=== PATIENT | female | born 1935 | race Caucasian/White ===

== ENCOUNTER 2016-12-30 06:40 | Day surgery (SDC) | payer MEDICARE, BC ==
[2016-12-30] VITALS (8 sets, daily range): BP systolic 90–118; BP diastolic 43–74; PULSE 55–62; TEMP 97–97.5
[~2016-12-30] VITALS: Ht 170.2 cm; Wt 91.0 kg
[2016-12-30 07:22] LABS: BASO # 0.1 (0.0-0.2); BASO % 1.2 % (0.0-2.0); EOS # 0.2 (0.0-0.7); EOS % 1.3 % (0-4.0); GRAN # 8.2 (1.4-6.5); GRAN % 67.6 % (42.2-75.2); HEMATOCRIT 41.8 % (37.0-47.0); HEMOGLOBIN 13.9 g/dl (12.5-16.0); LYMPH # 2.7 (1.2-3.4); LYMPH % 22.3 % (20.0-51.0); MEAN CELL VOLUME 91 fl (80.0-100.0); MEAN CORPUSCULAR HEMOGLOBIN 30 pg (27.0-31.0); MEAN CORPUSCULAR HGB CONC 33 g/dl (33.0-37.0); MEAN PLATELET VOLUME 9.4 fl (7.4-10.4); MONO # 0.9 (0.1-0.6); MONO % 7.1 % (1.7-9.3); PLATELET COUNT 353 K/mm3 (130-400); RED BLOOD COUNT 4.62 M/mm3 (4.10-5.30); REDCELL DISTRIBUTION WIDTH-CV 13.2 % (11.5-14.5); WHITE BLOOD COUNT 12.2 K/mm3 (4.8-10.8)
[2016-12-30] MEDS ORDERED: CO Q-1010 M1 PO (08:19)
[2016-12-30] MEDS ORDERED: NORCO 325 MG-51 TAB PO (08:20)
[2016-12-30] MEDS ORDERED: CHONDROITIN/GLU1 SGL PO (08:20)
[2016-12-30] MEDS ORDERED: CRESTOR20 MG PO (08:20)
[2016-12-30] MEDS ORDERED: LEXAPRO 10MG10 MG PO (08:21)
[2016-12-30] MEDS ORDERED: LASIX 40MG TABL40 MG PO (08:21)
[2016-12-30] MEDS ORDERED: ANTI-DIARRHEAL2 MG PO (08:22)
[2016-12-30] MEDS ORDERED: GLUCOPHAGE1000 MG PO (08:23)
[2016-12-30] MEDS ORDERED: HYZAAR 12.5 MG-1 TAB PO (08:23)
[2016-12-30] MEDS ORDERED: NIZORAL SHAMPO120 M1 TP (08:24)
[2016-12-30] MEDS ORDERED: DITROPAN 5MG TAB5 MG PO (08:25)
[2016-12-30] MEDS ORDERED: MYCOSTATIN100000 U/G TP (08:25)
[2016-12-30] MEDS ORDERED: K-TAB10 PO (08:26)
[2016-12-30] MEDS ORDERED: PROCARDIA XL 6060 MG PO (08:26)
[2016-12-30] MEDS ORDERED: LEADER NATUR1000 MCG PO (08:27)
[2016-12-30] MEDS ORDERED: TOPROL XL 25MG25 MG PO (08:27)
[2016-12-30] MEDS ORDERED: AMARYL 2MG T2 MG/TAB PO (08:28)
[2016-12-30] MEDS ORDERED: CIPRO 500MG TA500 MG PO (10:53)
== END 2016-12-30 13:15 | disposition home or self-care (01) ==
LOC: SDCO 06:40
PROVIDERS: Urology
DX: N20.0 Calculus of kidney (principal); E11.9 Type 2 diabetes mellitus without complications; Z79.84 Long term (current) use of oral hypoglycemic drugs; I10 Essential (primary) hypertension; E87.6 Hypokalemia; Z85.038 Personal history of other malignant neoplasm of large intestine
CPT/HCPCS: C1769; C1894; C2617; J0690; J1100; J1940; J2405; J2704; J3010; J7030; Q9967

== ENCOUNTER 2021-09-04 11:06 | Day surgery (SDC) | payer MEDICARE, BC ==
[~2021-09-04] VITALS: Ht 170.2 cm; Wt 98.0 kg
[~2021-09-04 11:06] MED LIST: AMARYL 2MG T2 MG/TAB PO; ANTI-DIARRHEAL2 MG PO; CHONDROITIN/GLU1 SGL PO; CIPRO 500MG TA500 MG PO; CO Q-1010 M1 PO; CRESTOR20 MG PO; DITROPAN 5MG TAB5 MG PO; GLUCOPHAGE1000 MG PO; HYZAAR 12.5 MG-1 TAB PO; K-TAB10 PO; LASIX 40MG TABL40 MG PO; LEADER NATUR1000 MCG PO; LEXAPRO 10MG10 MG PO; MYCOSTATIN100000 U/G TP; NIZORAL SHAMPO120 M1 TP; NORCO 325 MG-51 TAB PO; PROCARDIA XL 6060 MG PO; TOPROL XL 25MG25 MG PO
[2021-09-04] MEDS ORDERED: COZAAR100 MG PO (12:01)
[2021-09-04] MEDS ORDERED: TOPROL XL 50MG50 MG PO (12:01)
[2021-09-04] MEDS ORDERED: MASON NATURAL2000 IU PO (12:02)
[2021-09-04] MEDS ORDERED: OPTIFLEX-C 4001 CAP PO ×2 (12:03→12:06)
[2021-09-04] MEDS ORDERED: PROCARDIA XL 6060 MG PO (12:03)
[2021-09-04] MEDS ORDERED: K-TAB20 PO (12:04)
[2021-09-04] MEDS ORDERED: VITAMIN D250 MCG PO (12:05)
[2021-09-04] MEDS ORDERED: TURMERIC500 MG PO (12:07)
[2021-09-04] MEDS ORDERED: AMARYL4 MG PO (12:07)
[2021-09-04] MEDS ORDERED: COENZYME Q-10100 M1 PO (12:07)
[2021-09-04] MEDS ORDERED: ADALAT CC90 MG PO (12:08)
[2021-09-04] MEDS ORDERED: DESYREL 50MG50 MG PO (12:08)
[2021-09-04] MEDS ORDERED: LEVEMIR100 U/ML SQ (12:09)
[2021-09-04] MEDS ORDERED: CRESTOR20 MG PO (12:10)
[2021-09-04 12:18] VITALS: BP 158/77; PULSE 63; TEMP 98.4
[2021-09-04 14:15] VITALS: BP 137/70; PULSE 56; TEMP 97.8
[2021-09-04 14:30] VITALS: BP 139/68; PULSE 59
[2021-09-04 14:45] VITALS: BP 146/55; PULSE 66
--- NOTE | 2021-09-04 15:37 | NUR ---
1415: Patient arrived back to room after surgery. Patient's son, Gurdeep, at bedside. Patient requesting orange juice and blueberry muffin. Tolerated eating and drinking with no complaint of pain or nausea. 1430: Patient vitally stable, doing well. 1445: Patient stating she would like to get up and try to use the restroom. Stating she is having some discomfort following the procedure. Patient got up with assistance and used her four point walker to ambulate to restroom. Stated she was slightly dizzy when she sat up but that feeling went away quickly. 1505: Notified Dr. Jha that patient was feeling some discomfort. Received TORB for orders. Pain medications given per JAN. 1510: Patient went to restroom to change. Went through discharge instructions with son. Educated patient to drink lots of water per Dr. Jha. 1515: Escorted patient to patient's entrance via wheelchair. Assisted patient to the vehicle. Left patient in the care of her son, Gurdeep.
== END 2021-09-04 15:20 | disposition home or self-care (01) ==
LOC: SDCO 11:06
DX: N20.1 Calculus of ureter (principal); N18.2 Chronic kidney disease, stage 2 (mild); I12.9 Hypertensive chronic kidney disease with stage 1 through stage 4 chronic kidney disease, or unspecified chronic kidney disease; E11.22 Type 2 diabetes mellitus with diabetic chronic kidney disease; E11.42 Type 2 diabetes mellitus with diabetic polyneuropathy; E78.5 Hyperlipidemia, unspecified; E87.6 Hypokalemia; N39.0 Urinary tract infection, site not specified; E55.9 Vitamin D deficiency, unspecified; M19.90 Unspecified osteoarthritis, unspecified site; G89.29 Other chronic pain; M54.9 Dorsalgia, unspecified; F03.90 Unspecified dementia, unspecified severity, without behavioral disturbance, psychotic disturbance, mood disturbance, and anxiety; F32.9 Major depressive disorder, single episode, unspecified; Z90.49 Acquired absence of other specified parts of digestive tract; Z90.89 Acquired absence of other organs; Z20.822 Contact with and (suspected) exposure to COVID-19; Z90.710 Acquired absence of both cervix and uterus; Z79.4 Long term (current) use of insulin; Z79.899 Other long term (current) drug therapy; Z79.84 Long term (current) use of oral hypoglycemic drugs; Z85.038 Personal history of other malignant neoplasm of large intestine; Z85.43 Personal history of malignant neoplasm of ovary; Z85.828 Personal history of other malignant neoplasm of skin
CPT/HCPCS: C1769; C2617; J0360; J0690; J1100; J2405; J2704; J3010; J7120; Q9967

== ENCOUNTER → 2021-11-11 | Outpatient (CLI) | payer MEDICARE, BC ==
[~2021-11-11] MED LIST changes: +ADALAT CC90 MG PO; +AMARYL4 MG PO; +COENZYME Q-10100 M1 PO; +COZAAR100 MG PO; +DESYREL 50MG50 MG PO; +K-TAB20 PO; +LEVEMIR100 U/ML SQ; +MASON NATURAL2000 IU PO; +OPTIFLEX-C 4001 CAP PO; +TOPROL XL 50MG50 MG PO; +TURMERIC500 MG PO; +VITAMIN D250 MCG PO
== END ==
LOC: ZCOL.LAB 06:55
DX: Z01.89 Encounter for other specified special examinations (principal)

== ENCOUNTER → 2021-11-11 | Outpatient (CLI) | payer MEDICARE, BC | LOC: ZCOL.LAB 00:47 | DX: Z01.89 Encounter for other specified special examinations (principal) ==

== ENCOUNTER → 2024-08-02 | Outpatient (REF) | payer MEDICARE, BC ==
[~2024-08-02] MED LIST changes: +ASPIRIN 81M81 MG/TA2 PO; +COREG 25MG25 MG/TAB PO; +COZAAR 50MG50 MG/TAB PO; -COZAAR100 MG PO; +CRESTOR40 MG PO; +ELIQUIS 5MG PO; +IMDUR 60MG60 MG/TAB PO; +JARDIANCE25 PO; +LEXAPRO20 MG PO; +NORVASC 5MG5 MG/TAB PO; +PACERONE200 MG PO; +PLAVIX 75MG TAB75 MG PO; +SALONPAS1 EACH TP; +TRESIBA FL100 UNIT/1 SQ; +TRULICITY0.75 MG/0. SQ; +TYLENOL 8 HR PO
[2024-08-02 14:12] LABS: COLLECTION METHOD CLEAN CATCH
[2024-08-02 14:19] LABS: PH 5.5 (5.0-8.5); URINE APPEARANCE CLEAR (CLEAR/HAZY); URINE BLOOD 3+ (NEGATIVE); URINE COLOR YELLOW (YELLOW); URINE GLUCOSE 3+ (NEGATIVE); URINE KETONE NEGATIVE (NEGATIVE); URINE NITRATE NEGATIVE (NEGATIVE); URINE PROTEIN(semi-quant) NEGATIVE (NEGATIVE); URINE UROBILINOGEN 0.2 E.U/dL (0.2-1.0)
== END ==
LOC: ZCOL.LAB 13:55
PROVIDERS: Internal Medicine
DX: N30.01 Acute cystitis with hematuria (principal)

== ENCOUNTER → 2024-08-17 | Outpatient (REF) | payer MEDICARE, BC ==
[2024-08-17 11:56] LABS: COLLECTION METHOD CLEAN CATCH
[2024-08-17 12:06] LABS: URINE APPEARANCE CLEAR (CLEAR/HAZY); URINE BLOOD 2+ (NEGATIVE); URINE COLOR YELLOW (YELLOW); URINE GLUCOSE 3+ (NEGATIVE); URINE KETONE NEGATIVE (NEGATIVE); URINE NITRATE NEGATIVE (NEGATIVE); URINE PROTEIN(semi-quant) NEGATIVE (NEGATIVE); URINE UROBILINOGEN 0.2 E.U/dL (0.2-1.0)
== END ==
LOC: COL.LAB 09:50
PROVIDERS: Internal Medicine
DX: R35.0 Frequency of micturition (principal)